=== PATIENT | male | born 2005 | race Caucasian/White ===

== ENCOUNTER 2024-03-17 01:24 | Observation (INO) | payer OTHER ==
[~2024-03-17] VITALS: Ht 180.3 cm; Wt 59.0 kg
[2024-03-17 02:34] LABS: BASOPHILS ABSOLUTE AUTO 0.03 K/mm3 (0.00-0.23); BASOPHILS PERCENT AUTO 0 % (0-2); EOSINOPHILS ABSOLUTE AUTO 0.12 K/mm3 (0.00-0.68); EOSINOPHILS PERCENT AUTO 1 % (0-6); Hemoglobin 14.2 g/dL (13.5-17.5); IMMATURE GRAN ABSOLUTE AUTO 0.05 K/mm3 (0.00-0.10); IMMATURE GRAN PERCENT AUTO 0 % (0-1); LYMPHOCYTES PERCENT AUTO 18 % (21-46); MONOCYTES ABSOLUTE AUTO 1.05 K/mm3 (0.16-1.47); MONOCYTES PERCENT AUTO 9 % (4-13); Mean Corpuscular HGB 31.6 pg (26.0-34.0); Mean Corpuscular HGB Conc 34.6 g/dL (31.5-36.5); Mean Corpuscular Volume 91 fL (80-100); Mean Platelet Volume 8.4 fL (9.1-12.4); NEUTROPHILS ABSOLUTE AUTO 8.14 K/mm3 (1.96-9.15); NEUTROPHILS PERCENT AUTO 71 % (41-73); Platelet Count 282 K/mm3 (150-400); RDW Standard Deviation 43.1 fL (35.1-46.3); Red Blood Cell Count 4.49 M/mm3 (4.30-5.90); White Blood Cell Count 11.49 K/mm3 (4.00-11.30)
[2024-03-17 02:57] LABS: Acetaminophen, Random <2.0 ug/mL (10.0-30.0); Alanine Aminotransfer (ALT/SGP 28 U/L (12-78); Albumin, Blood 3.7 g/dL (3.4-5.0); Albumin/Globulin Ratio 1.2 (0.8-1.8); Alk Phos 88 U/L (50-136); Anion Gap 11 mmol/L (3-11); Aspartate Aminotrans (AST/SGOT 27 U/L (12-37); Bilirubin, Total 0.3 mg/dL (0.1-1.0); Blood Urea Nitrogen 22 mg/dL (8-24); Bun/Creatinine Ratio 24.1 (12.0-20.0); CO2, Blood 24 mmol/L (21-32); Calcium, Blood 8.9 mg/dL (8.5-10.1); Chloride, Blood 108 mmol/L (98-108); Creatinine, Blood 0.91 mg/dL (0.60-1.20); Ethanol (Alcohol), Blood, Med <3 mg/dL; Globulin, Blood 3.2 g/dL (2.2-4.0); Glomerular Filtration Rate 124 (60-); Glucose, Blood 86 mg/dL (70-99); Potassium, Blood 4.2 mmol/L (3.5-5.5); Salicylate <1.7 mg/dL (2.8-20.0); Sodium, Blood 139 mmol/L (136-145); Total Protein, Blood 6.9 g/dL (6.4-8.2)
[2024-03-17 04:10] LABS: Source, Urine Clean Catch
[2024-03-17 04:14] LABS: Bilirubin, Urine Neg (Neg); Blood, Urine 1+ (Neg); Glucose Qualitative, Urine Neg (Neg); Ketones, Urine Neg (Neg); Leukocyte Esterase, Urine 3+ (Neg); Nitrite, Urine Neg (Neg); Protein, Urine 1+ (Neg); Specific Gravity, Urine 1.015 (1.003-1.022); Urobilinogen, Urine NORM (Normal)
[2024-03-17 04:36] LABS: U Amphetamine Screen DETECTED; U Barbituate Screen Not Detected; U Benzodiazapine Screen Not Detected; U Buprenorphine Screen Not Detected; U Cannabinoids Screen DETECTED; U Cocaine Screen Not Detected; U Methadone Screen Not Detected; U Methamphetamine Screen DETECTED; U Opiates Screen Not Detected; U Oxycodone Screen Not Detected; U Phencyclidine Screen Not Detected
[2024-03-17 04:43] LABS: Appearance, Urine Hazy (Clear); Color, Urine Yellow (P-Yellow)
[2024-03-17 04:44] LABS: Amorphous Light (0-Heavy); Bacteria Many /hpf; Red Blood Cells, Urine 0-2 /hpf (0-2); Squamous Epithelial Cells Mod /hpf (Few); White Blood Cells, Urine 50-100 /hpf (0-5)
[2024-03-17] MEDS ORDERED: Haloperidol 5 MG Tab PO PRN (11:50)
[2024-03-17] MEDS ORDERED: Haloperidol Lactate Inj. 5 MG/ML Injection IM PRN (11:50)
[2024-03-17] MEDS ORDERED: Ondansetron 4 MG SoluTab MM PRN (11:55)
[2024-03-17] MEDS ORDERED: Aluminum Hydroxide 320MG/5ML 473 ML PO PRN (11:55)
[2024-03-17] MEDS ORDERED: Polyethylene Glycol 3350 17 gm PO PRN (11:55)
[2024-03-17] MEDS ORDERED: FLU VACC TS2024-25(6MOS UP)/PF 45 MCG/0.5 ML SYRINGE IM ONE (11:55)
[2024-03-17] MEDS ORDERED: DiphenhydrAMINE HCl 50 MG Cap PO PRN (11:55)
[2024-03-17] MEDS ORDERED: TraZODone HCl 50 MG Tab PO PRN (11:55)
[2024-03-17] MEDS ORDERED: Calcium Carbonate 500 MG Tab Chew PO PRN (11:55)
[2024-03-17] MEDS ORDERED: DiphenhydrAMINE HCl 50 MG/ML 1ML Vial IV PRN (11:55)
[2024-03-17] MEDS ORDERED: LORazepam 2 MG/ML 1ML Injection IM PRN (12:00)
[2024-03-17] MEDS ORDERED: LORazepam 2 MG Tab PO PRN (12:00)
[2024-03-17] MEDS ORDERED: Melatonin 3 MG Tab PO PRN (12:00)
[2024-03-17] MEDS ORDERED: HydrOXYzine Pamoate 50 MG Cap PO PRN (12:00)
[2024-03-17] MEDS ORDERED: Acetaminophen 325 MG TABLET PO PRN (12:00)
[2024-03-17] MEDS ORDERED: OLANZapine ODT 10 MG Tab MM PRN (12:00)
[2024-03-17] MEDS ORDERED: Ibuprofen 600 MG Tab PO PRN (12:00)
[2024-03-17] MEDS ORDERED: QUET100 PO (13:44)
[2024-03-18] MEDS ORDERED: Multivitamins 1 Tab PO SCH (09:00)
== END 2024-03-17 11:12 | disposition other institution (70) ==
LOC: ER 01:24 → EOR 01:25
PROVIDERS: ADMIT Student in an Organized Health Care Education/Training Program
DX: F20.0 Paranoid schizophrenia (principal); R45.851 Suicidal ideations; F15.10 Other stimulant abuse, uncomplicated
CPT/HCPCS: 80053; 80320; 81001; 85025; 87086; 99285-25; G0378; G0480

== ENCOUNTER 2024-03-17 01:25 | Inpatient (IN) | payer OTHER ==
[~2024-03-17] VITALS: Ht 180.3 cm; Wt 68.0 kg
[2024-03-17 11:18] VITALS: BP 134/99
[2024-03-17] MEDS ORDERED: Melatonin 3 MG Tab PO PRN (12:25)
[2024-03-17] MEDS ORDERED: Ondansetron 4 MG SoluTab MM PRN (12:25)
[2024-03-17] MEDS ORDERED: TraZODone HCl 50 MG Tab PO PRN (12:25)
[2024-03-17] MEDS ORDERED: OLANZapine ODT 10 MG Tab MM PRN (12:25)
[2024-03-17] MEDS ORDERED: Polyethylene Glycol 3350 17 gm PO PRN (12:25)
[2024-03-17] MEDS ORDERED: LORazepam 2 MG Tab PO PRN (12:25)
[2024-03-17] MEDS ORDERED: LORazepam 2 MG/ML 1ML Injection IM PRN (12:30)
[2024-03-17] MEDS ORDERED: Haloperidol 5 MG Tab PO PRN (12:30)
[2024-03-17] MEDS ORDERED: FLU VACC TS2024-25(6MOS UP)/PF 45 MCG/0.5 ML SYRINGE IM PRN (12:30)
[2024-03-17] MEDS ORDERED: Haloperidol Lactate Inj. 5 MG/ML Injection IM PRN (12:30)
[2024-03-17] MEDS ORDERED: Ibuprofen 600 MG Tab PO PRN (12:30)
[2024-03-17] MEDS ORDERED: DiphenhydrAMINE HCl 50 MG/ML 1ML Vial IV PRN (12:30)
[2024-03-17] MEDS ORDERED: HydrOXYzine Pamoate 50 MG Cap PO PRN (12:30)
[2024-03-17] MEDS ORDERED: Aluminum Hydroxide 320MG/5ML 473 ML PO PRN (12:35)
[2024-03-17] MEDS ORDERED: Calcium Carbonate 500 MG Tab Chew PO PRN (12:35)
[2024-03-17] MEDS ORDERED: DiphenhydrAMINE HCl 50 MG Cap PO PRN (12:35)
[2024-03-17] MEDS ORDERED: Acetaminophen 325 MG TABLET PO PRN (12:35)
[2024-03-17 13:13] VITALS: BP 134/99
[2024-03-17] MEDS ORDERED: QUET100 PO (13:44)
--- NOTE | 2024-03-17 17:49 | NUR ---
SHIFT SUMMARY PT ADMITTED FROM THE ED FOR SI. PT HAD FOUND A GUN AND SAID THAT HE WANTS TO "BLOW HIS BRAINS OUT". PT VERBALLY AGGRESSIVE UPON ARRIVAL AND REQUIRES REMINDERS TO BE POLITE. HE DECLINED TO ANSWER SOME QUESTIONS DURING HIS ADMISSION BUT WAS ABLE TO SIGN ALL THE ADMISSION PAPERWORK. 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 HE HAS BEEN ASLEEP FOR THE MAJORITY OF THE TIME SINCE HE HAS ARRIVED BUT HAS PARTICIPATED IN MEALS. HE CURRENTLY ENDORSES SI AND HI. THE HI IS GENERALIZED AND HE DOES NOT WANT TO HURT ANYONE IN PARTICULAR. HE IS MONITORED VIA Q15 ROUNDS FOR SAFETY.
[2024-03-17 21:00] VITALS: BP 131/71
[2024-03-17] MEDS ORDERED: OLANZapine 10 MG Tab PO SCH (21:00)
--- NOTE | 2024-03-18 03:46 | NUR ---
SHIFT SUMMARY: ASSUMED CARE FROM PRIOR SHIFT. PATIENT SLEEPING DURING THE FIRST COUPLE OF HOURS. RN DID WAKE HIM UP FOR ASSESSMENT. HE DOES WANT TO EAT A SNACK. HE DID EAT A WHOLE SANDWICH, 2 FRUIT CUPS, 3 MILKS AND A LARGE WATER. HE CURRENTLY DENIES ANY SI, VH, AH AND TH. HE IS ABLE TO TELL ME "I FEEL VERY DEPRESSED". HE INFORMS ME HE IS FROM [place] AND THAT HE GOT "DROPPED OFF IN [place]". HIS SISTER LIVES IN [place], AND SHE MIGHT NOT KNOW HIS LOCATION? HE WILL TRY TO CALL HER TOMORROW.HE IS DIFFICULT TO UNDERSTAND HE OFTEN SLURS HIS WORDS. HE IS ABLE TO TELL ME HE IS IN A HOSPITAL. HE CONFIRMS HE IS A "DRINKER AND USES METH'. HE STATES "I USE EVERYOTHER DAY". UNKOWN AMMOUNTS OF EITHER. HE IS COMPLIANT WITH ASSESSMENT AND MEDICATIONS. HE GOES BACK TO BED AFTER SNACK AND ASSESSMENT. HE CURRENTLY IS SLEEPING. NO NOTED BEHAVIORS OR ISSUES. WE WILL CONTINUE TO MONITOR EVERY 15 MIN FOR SAFETY AND COMFORT.
--- NOTE | 2024-03-18 08:40 | NUR ---
AM ASSESSMENT PT SLEEPING AT MED PASS AND HAS NOT GOTTEN OUT OF BED FOR BREAKFAST. PT SLEEPING HARD AND NEED TO TAP LEG SEVERAL TIMES TO WAKE HIM. PT INFORMED MED TIME FOR MULIT VIT AND PT TOOK W/O ISSUE. PT ASKED ABOUT BREAKFAST AND WAS INFORMED BREAKFAST WAS STILL HERE AND HE IS WELCOME TO GO TO DINING ROOM TO EAT. PT THEN FELL BACK ASLEEP. WILL CONTINUE TO MONITOR AND PROVIDE SUPPORT NECESSARY.
[2024-03-18] MEDS ORDERED: Multivitamins 1 Tab PO SCH (09:00)
--- NOTE | 2024-03-19 04:07 | NUR ---
SHIFT SUMMARY; ASSUMED CARE FROM PRIOR SHIFT. PATIENT IS SLEEPING AT THE BEGINNING OF SHIFT. HE DID WAKE UP AFTER SEVERAL ATTEPTS. HE DID TAKE HIS PM MEDICATIONS. I DID OFFER A SNACK AND HE REFUSED. HE DID NOT ANSWER ANY QUESTIONS PERTAINING TO ASSESSMENT. HE JUST ROLLED OVER AND FELL BACK TO SLEEP. HE DOES SLEEP THROUGH THE NIGHT. NO NOTED BEHAVIORS OR ISSUES. I WILL ENCOURAGE YARA TO PERTICIPATE AT NEXT SHIFT. WE WILL CONTINUE TO MONITOR EVERY 15 MIN FOR SAFETY AND COMFORT.
--- NOTE | 2024-03-19 05:34 | NUR ---
PATIENT CONTINUES TO SLEEP THROUGH THE NIGHT. NO NOTED ISSUES OR BEHAVIORS.
--- NOTE | 2024-03-19 17:09 | NUR ---
Pt is A&O, calm, minimally cooperative with minimal eye contact during morning assessment. Pt is sleepy and spent most of the day in bed, getting up only for meals and snacks. Pt endorses passive SI, denies HI, and did not answer further questions. He was med compliant during morning med pass. Pt was out of bed at about 1620 and requested shower supplies and a change of clothing from staff; he returned to bed after his shower. Staff continues to monitor for safety and wellness.
--- NOTE | 2024-03-20 04:32 | NUR ---
SHIFT SUMMARY: ASSUMED CARE FROM PRIOR SHIFT. PATIENT IS ALREADY IN BED SLEEPING. HE IS VERY DIFFICULT TO WAKE UP FOR SNACK AND PM MEDICATIONS. HE WAKES SCREAMING TO "GET THE FUCK AWAY FROM ME". "I WAS GOING TO PUNCH YOU IN THE FACE". I EXPLIANED TO YARA THAT IT WAS TIME TO TAKE HIS EVENING MEDICATIONS. I REMINDED HIM THAT HE WAS HERE ON VOLUNTEER STATUS. WE HAVE TO CHECK ON AND TREAT PATIENTS. I ENCOURAGED HIM TO SPEAK TO THE PROVIDER IF HE WANTED A SAFE DISCHARGE. I REMINDED HIM THAT YELLING AND BEING AGGRESIVE IN HIS BEHAVIOR WAS NOT EXCEPTABLE TO STAFF OR OTHR PATIENTS.HE DID TAKE HIS PM MEDICATIONS AND REFUSED TO ENGAGE IN ACTIVITIES OR PM SNACK. HE DID WAKE UP AT 2AM DEMANDING HIS PM MEDICATIONS AND FOOD. I REMINDED HIM, I GAVE HIS PM MEDICATIONS ALREADY AND SNACK TIME WAS AT 8PM, AND HE REFUSED FOOD AT THAT TIME. DUE TO YARA'S DETOX FROM METH, AND HIS NUTRITIONAL NEED, I DID GIVE HIM A LARGE WATER AND SNACK THAT HE ATE IN THE KITCHEN. HE DID STOMP BACK TO HIS ROOM WHEN HE WAS DONE. HE FELL BACK TO SLEEP WITHOUT ANY FURTHER BEHAVIORS OR ISSUES. HE DID REFUSE TO ANSWER ANY ASSESSMENT QUESTIONS. YARA PRESENTS VERY IRRITABLE,AGITATED AND ANXIOUS WHEN HE IS AWAKE. IT IS DIFFICULT TO DECERN IF THIS IS HIS PERSONALITY, MENTAL HEALTH DISEASE OR CONTINUED METH WITHDRAWL.
--- NOTE | 2024-03-20 06:15 | NUR ---
PATIENT CONTINUES TO SLEEP. NO FURTHER BEHAVIORS OR ISSUES.
--- NOTE | 2024-03-20 17:11 | NUR ---
SHIFT SUMMARY ASSUMED PT CARE @0700. PT HAS SPENT MOST OF THE DAY SLEEPING. THIS RN SPOKE TO PATIENT ABOUT PARTICIPATING WITH THERAPY, MEDICATION, AND GROUPS. PT REPORTS THAT HE WILL PARTICIPATE AND BE COMPLIANT. PT DID SPEND ALL FREE TIME IN BED SLEEPING. APPROX 1430 PT COULD BE HEARD SREAMING "FUCK, FUCK, FUCK" FROM HIS ROOM. ROOMATE HAD JUST ENTERED AND USED THE BATHROOM. PT CONTINUED TO YELL THAT"HE JUST WANTED TO FUCKING " AND THAT HE "MISSED HIS MOM" AND THAT "IF SHE JUST CAN , WHY CANT I" ALSO THAT HE IS "FUCKED UP IN THE HEAD" STAFF ABLE TO VERBALLY DEESCALATE BRIEFLY, THEN PATIENT BEGAN YELLING AGAIN. PT VERBALLY AGREED TO TAKE ORAL B52 TO CALM. PT THEN ABLE TO GO WITH SAIGE COLE TO SENSORY ROOM TO CALM. PT THEN ABLE TO GO TO DINNING ROOM TO EAT. PT IS UNABLE TO ARTICULATE WHAT WOKE HIM UP OR MADE HIM UPSET. WILL CONTINUE POC.
--- NOTE | 2024-03-21 04:25 | NUR ---
Patient was alert and oriented once he had woken up from his sleep in the sensory room. Denied SI,HI or AVH. amd took HS medication without a problem. Water given per patient request, but declined a snack and went to bed. Has been sleeping the majority of the shift, and is still sleeping now. No outbursts noted overnight. Patient is still sleeping now. Will continue close monitoring for safety every 15 minutes.
[2024-03-21 07:22] LABS: CHOL/HDL RATIO 2.8; Cholesterol 129 mg/dL (50-200); HDL Cholesterol 46 mg/dL (>39); LDL/HDL RATIO 1.6; Low Density Lipoprotein Chol 75 mg/dL (0-110); Triglycerides 39 mg/dL (30-140); Very Low Density Lipoprot Chol 7 mg/dL (6-28)
[2024-03-21] MEDS ORDERED: Multivitamins 1 Tab PO SCH (18:00)
--- NOTE | 2024-03-21 18:16 | NUR ---
SHIFT SUMMARY PT AA&O TO ALL. HE HAS BEEN DROWSY AND SLEPT MOST OF THE DAY. DR. NAVARRO HAS ADJUSTED MEDICATION TO ADDRESS SEDATION. PT HAS BEEN COOPERATIVE TODAY. HE WAS ABLE TO COME TO THIS RN WHEN FEELING ANXIETY AND ASK FOR MEDS. HE IS CONCERNED ABOUT DC AND WOULD LIKE TO SEEK INPATIENT DRUG REHAB. SISTER REPORTS THAT HE HAS ALCOHOL SYNDROME AND HAS DIFFICULTY CARING FOR HIMSELF. WILL CONTINUE POC
[2024-03-21] MEDS ORDERED: OLANZapine 10 MG Tab PO SCH (21:00)
[2024-03-21 21:13] VITALS: BP 151/94
--- NOTE | 2024-03-22 04:06 | NUR ---
Patient slept through the shift with exception of waking for vital signs and a snack. wakes easily and denied SI,HI and AVH. Encouraged patient to participate in group activities with his peers and explained that this was a very important part of his treatment. Will continue close monitoring every 15 minutes for safety
[2024-03-22 08:41] VITALS: BP 145/77
[2024-03-22] MEDS ORDERED: ARIPiprazole 10 MG Tab PO SCH (09:00)
--- NOTE | 2024-03-22 18:19 | NUR ---
SHIFT SUMMARY PT [id number]. PT WAS GENERALLY COOPERATIVE WITH TREATMENT, BUT DID DISPLAY AGGRAVATION MULTIPLE TIMES T/O THE DAY WITH EMOTIONAL ESCALATIONS. EXAMPLES INCLUDE: PT SHOUTED AT STAFF "JUST LEAVE ME ALONE" WHEN WOKEN UP. HE OFTEN STOMPS LOUDLY DOWN AGUILERA. HE LOUDLY CURSED "FUCK THIS" WHEN ASKED TO ATTEND GROUP. HE ALSO BECAME ESCALATED THIS AFTERNOON AFTER PHONE CALL WITH SISTER DUE TO LEARNING THAT HE WON'T BE ABLE TO DISCHARGE TO HER HOUSE. PT WAS CRYING, RAISING VOICE AND STARTED BANGING HEAD ON THE WALL IN THE SENSORY ROOM. HE WAS SUCCESSFULLY REDIRECTABLE WITH THERAPEUTIC COMMUNICATION AND PHARMACEUTICAL INTERVENTION. PT IS CURRENTLY RESTING IN BED. HIS CURRENT DC WISHES ARE TO GO TO THE [facility] TOMORROW. DISCHARGE PLANNERS AWARE. HE DENIED SI/HI AND AVTH TODAY, TOOK MEDS PRESCRIBED AND ATTENDED SOME GROUPS.
[2024-03-22] MEDS ORDERED: OLANZapine 10 MG Tab PO SCH (21:00)
--- NOTE | 2024-03-23 04:30 | NUR ---
Patient was out of bed and participating in snack time before HS. Still very guarded and frustrated demeanor when speaking with staff. denies SI, HI and AVH at time of assessment. After snack, he went right back to bed and pulled covers over head. Patient hasa slept all night and is still sleeping now. Will continue close observation every 15 minutes for safety
[2024-03-23 07:42] VITALS: BP 133/102
--- NOTE | 2024-03-23 08:39 | NUR ---
MORNING CHECK IN PT REPORTS FEELING SAD, FRUSTRATED, AND ANXIOUS THIS MORNING. PT ALSO DOCUMENTS BEING HOPEFUL TO ACCOMPLISH TODAY BY GETTING INTO [facility] AND STAY CLEAN FROM ALL SUBSTANCES. PT DENIES ANY CONCERNS AT THIS TIME.
[2024-03-23] MEDS ORDERED: ARIPiprazole 10 MG Tab PO SCH (09:00)
[2024-03-23] MEDS ORDERED: ABILIFY MYCITE20 M2 PO (12:41)
[2024-03-23] MEDS ORDERED: MELA3 PO (12:41)
[2024-03-23] MEDS ORDERED: ONE DAILY ESS400 MCG PO (12:43)
--- NOTE | 2024-03-23 16:40 | NUR ---
DISCHARGE SUMMARY PT [id number]. COMPLIANT WITH CARE PLAN THIS SHIFT. PT TOOK HIS MEDS PRESCRIBED AND ATTENDED GROUP THIS SHIFT. PT REPORTED MOOD "FINE" THIS AM. HE HAS BEEN EAGER TO GET DISCHARGED, ASKING FREQUENTLY ABOUT DC STATUS. CURRENT PLAN IS TO DC BACK TO [place] [facility]. SAFETY PLAN COMPLETED WITH THIS RN. DC INSTRUCTIONS DISCUSSED INCLUDING CONTACT INFO FOR FOLLOW UP IN [facility], DC MED LIST AND PATIENT EDUCATION ON DIAGNOSES AND MEDICATION. PT VERBALIZES UNDERSTANDING. TRANSPORT ARRIVED AT APPROX 1530 FOR PATIENT BUILDING TECH. PT'S BELONGINGS RETURNED AND PT WAS SAFELY ESCORTED OUT OF [facility].
== END 2024-03-23 15:35 | disposition home or self-care (01) | DRG 885 ==
LOC: BHU 01:25
PROVIDERS: ADMIT Student in an Organized Health Care Education/Training Program
DX: F20.0 Paranoid schizophrenia (principal); Z59.00 Homelessness unspecified; F15.23 Other stimulant dependence with withdrawal; Z79.899 Other long term (current) drug therapy
CPT/HCPCS: 36415; 80061; 83036; A9270; J1200; J1630; J2060